=== PATIENT | female | born 1980 | race Caucasian/White ===

== ENCOUNTER 2023-03-23 08:00 | Outpatient (CLI) | payer BC | END 2023-03-23 23:59 | disposition home or self-care (01) | LOC: LAB.N 08:00 | PROVIDERS: ATTEND Physician Assistant Medical | DX: R30.0 Dysuria (principal) | CPT/HCPCS: 87086; 87181 ==

== ENCOUNTER 2023-10-08 10:20 | Outpatient (CLI) | payer BC ==
--- NOTE | 2023-10-08 12:15 | XRAY Report ---
PROCEDURE: Chest 2V INDICATIONS: PNEUMONIA TECHNIQUE: 2 views of the chest were obtained. COMPARISON: None. FINDINGS: Surgical changes and devices: None. Lungs and pleura: No pleural effusions or pneumothorax. Lungs are clear. Mediastinum: Mediastinal contours appear normal. Heart size is normal. Bones and chest wall: No suspicious bony lesions. Overlying soft tissues appear unremarkable. IMPRESSION: Normal two-view chest x-ray Reviewed by: Arthur Centeno MD on 10/08/2023 11:14 AM [facility] Approved by: Arthur Centeno MD on 10/08/2023 11:14 AM [facility] Station ID: [id number]
== END 2023-10-08 13:54 | disposition home or self-care (01) ==
LOC: DI.N 10:20
PROVIDERS: ATTEND Physician Assistant Medical
DX: J18.9 Pneumonia, unspecified organism (principal)